=== PATIENT | female | born 1950 | race Caucasian/White ===

== ENCOUNTER 2018-01-13 10:24 | Outpatient (CLI) | payer MEDICARE ==
--- NOTE | 2018-01-13 13:46 | MRI ---
MRI LEFT KNEE WITHOUT CONTRAST: INDICATIONS: History of internal derangement of the left knee for many months. COMPARISON: Prior exam, dated 06/02/2015. FINDINGS: Again seen is a horizontally oriented tear involving the body of the lateral meniscus. There is a gudino spected horizontally oriented oblique tear involving the posterior horn/posterior root of the medial meniscus, with partial medial extrusion. The ACL, PCL, MCL, and LCLC are intact. The extensor mechanism is intact. There are small marginal osteophytes affecting all major compartments of the knee. There is moderate to severe chondrosis involving the medial patellar facet and median patellar ridge, which appears si milar to the comparison study. There is a moderate sized semimembranosus-medial gastrocnemius popliteal cyst. IMPRESSION: 1. Mild osteoarthrosis of the left knee. 2. Stable medial and lateral meniscal tears. POS: [facility]
== END 2018-01-13 10:25 | disposition home or self-care (01) ==
LOC: BICMRI 10:24
PROVIDERS: ATTEND Orthopaedic Surgery
DX: M23.92 Unspecified internal derangement of left knee (principal); S83.242A Other tear of medial meniscus, current injury, left knee, initial encounter; S83.282A Other tear of lateral meniscus, current injury, left knee, initial encounter; M17.12 Unilateral primary osteoarthritis, left knee

== ENCOUNTER 2018-02-04 10:02 | Outpatient (CLI) | payer MEDICARE ==
[2018-02-04 10:56] LABS: #Basophils 0.1 thou/uL (0.0-0.2); #Eosinphils 0.3 thou/uL (0.0-0.7); #Lymphocytes 2.2 thou/uL (1.20-3.40); #Monocytes 0.4 thou/uL (0.11-0.59); #Neutrophils 6.1 thou/uL (1.40-6.50); %Basophils 1.3 % (0.0-1.0); %Eosinophils 3.7 % (0.0-10.0); %Lymphocytes 23.6 % (21.0-51.0); %Monocytes 4.3 % (0.0-10.0); %Neutrophils 67.1 % (42.0-75.0); Hemoglobin 11.6 g/dL (12.0-16.0); Mean Corpuscular HGB CONC 32.6 g/dL (32.0-36.0); Mean Corpuscular Hemoglobin 29.2 pg (27.0-31.0); Mean Corpuscular Volume 89.7 fL (78.0-98.0); Mean Platelet Volume 7.6 fL (7.4-10.4); Platelet Count 382 thou/uL (130-400); RBC Distribution Width 12.4 % (11.5-14.5); Red Blood Cell (RBC) Count 3.97 mill/uL (4.20-5.40); White Blood Cell (WBC) Count 9.1 thou/uL (4.8-10.8)
[2018-02-04 11:16] LABS: Anion Gap 10 mmol/L (10-20); BUN (Urea Nitrogen) 19 mg/dL (9.8-20.1); Calc. Creatinine Clearance 0 mL/min (70-130); Carbon Dioxide 25 mmol/L (23-31); Chloride 106 mmol/L (98-107); Estimated GFR-MDRD 40; Glucose 150 mg/dL (80-115); Sodium 137 mmol/L (136-145)
--- NOTE | 2018-02-05 08:17 | EKG ---
Test Reason : Blood Pressure : / mmHG Vent. Rate : 070 BPM Atrial Rate : 070 BPM P-R Int : 162 ms QRS Dur : 072 ms QT Int : 422 ms P-R-T Axes : 033 -86 033 degrees QTc Int : 455 ms Normal sinus rhythm with sinus arrhythmia Left anterior fascicular block Abnormal ECG When compared with ECG of 08-JUN-2015 10:49, Left anterior fascicular block is now Present Confirmed by DAYANA PERKINS ([id number]) on 02/05/2018 8:16:35 AM Referred By: RSOY Confirmed By:DAYANA PERKINS
== END 2018-02-04 10:03 | disposition home or self-care (01) ==
LOC: LABBT 10:02
PROVIDERS: ATTEND Orthopaedic Surgery
DX: Z01.818 Encounter for other preprocedural examination (principal); S83.207A Unspecified tear of unspecified meniscus, current injury, left knee, initial encounter
CPT/HCPCS: 80048; 85025; 93005; 93010

== ENCOUNTER 2018-02-06 09:18 | Day surgery (SDC) | payer MEDICARE ==
[2018-02-04 10:15] VITALS: BMI 37.0
[2018-02-06] MEDS ORDERED: Bupivacaine HCl 0.5%/Epinephrine 1:200,000/PF 30 ml Vial ONE ×2 (10:14→12:42)
[2018-02-06] MEDS ORDERED: Lidocaine 2% w/Epinephrine 1:200K 20 ML VIAL ONE (10:14)
[2018-02-06] MEDS ORDERED: CEFAZOLIN/Water 2 GM/20 ML SYRINGE ONE (10:29)
[2018-02-06] MEDS ORDERED: PROPOFOL 20 ML ONE (11:01)
[2018-02-06] MEDS ORDERED: Fentanyl 100 MCG/2 ML VIAL ONE ×3 (13:07→14:33)
[2018-02-06] MEDS ORDERED: PROPOFOL 200 MG/20 ML VIAL ONE (14:17)
[2018-02-06] MEDS ORDERED: ePHEDrine/0.9% NaCl/PF SYRINGE 50 mg/10 ml ONE (14:17)
[2018-02-06] MEDS ORDERED: Ondansetron PF 4 MG/2 ML Vial ONE (14:17)
[2018-02-06] MEDS ORDERED: HYDROcodone/Acetaminophen 5/325 mg Tablet ONE (15:56)
--- NOTE | 2018-02-09 11:18 | OP ---
DATE OF PROCEDURE: 02/06/2018 PREOPERATIVE DIAGNOSIS: Left knee medial and lateral meniscus tears. POSTOPERATIVE DIAGNOSES: 1. Left knee medial and lateral meniscus tears. 2. 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 SURGERY PERFORMED: Left knee arthroscopy with partial medial and lateral meniscectomies, as well as debridement of any loose cartilage from the lateral femoral condyle as well as the trochlea and the p atella. SURGEON: Nile Bond M.D. INVASIVE CARDIOLOGIST: None. BLOOD LOSS: Minimal. COMPLICATIONS: None. DISPOSITION: She went to recovery room in stable condition. ANESTHESIA: She did have a general anesthetic as well as a local knee block. INDICATIONS: This 67-year-old active female, comes in complaining of left knee pain. We have failed in our attempt to make it better nonoperatively, and at this time, she is presenting for surgery. TECHNIQUE: After all appropriate consent forms were explained and signed, she was taken back to the operating room, and at this time, was given general anesthetic. Once anesthesia was appropriate, the tourniquet was placed on the left thigh and leg was placed on arthroscopic leg nugent. It was then prepped and draped in standard surgical fashion. Limb was exsanguinated, tourniquet taken to 300 mmH g. An inferolateral portal was then established and the scope was placed into the knee joint. A nee dle localization technique was then used to make a medial working portal. Diagnostic arthroscopy com menced in the notch. ACL and PCL probed and found to be intact. The medial compartment showed a deg enerative tear of the posterior horn of the medial meniscus and a partial meniscectomy was performed using meniscal biter and shaver. There were some small areas of chondral wear and damage, but no sig nificant treatment was necessary. Lateral compartment was entered. Again, there was a tear noted of the lateral meniscus as a flap tear with a horizontal cleavage with a large flap femoral component. This was removed while leaving the top portion of the meniscus intact. There was also some unstable cartilage of the lateral femoral condyle and this was debrided back to a stable base. Gutters were swept through. There were some small osteophytes growing on the femur. There was also a small amoun t of synovitis in the gutters. Patellofemoral joint showed the patient to have a significant amount of crabmeat appearance of the patella. Any loose cartilage was removed gently with the shaver. Saida ining cartilage was left alone. The trochlea also had some grade 2 and 3 chondral changes. At this time, the scope was removed. The fluid was drained from the knee and each portal site was closed wit h a simple nylon stitch. Bulky sterile dressing was applied and the tourniquet was let down. Toes p inked up nicely. The patient was awakened and taken to the recovery room in stable condition. All c ounts were correct at the end of the case. She received preoperative IV antibiotics.
--- NOTE | 2018-02-09 12:40 | HP ---
This is for a case that was performed on 02/06/2018. HISTORY OF PRESENT ILLNESS: This is an H&P update for patient who has had long-term left knee proble ms. The patient decided to have a knee arthroscopy and at this time is presenting for said procedure . REVIEW OF SYSTEMS: Negative for any recent fevers, chills, shortness of breath or chest pain. Her past medical, surgical, family and social history is unchanged from her previous H&P. Medication s were also changed. ALLERGIES: She is allergic to MORPHINE, but it is not really an allergy, it is intolerance. PHYSICAL EXAMINATION: GENERAL: This is a well-developed female in no acute distress, alert and cooperative. EXTREMITIES: Exam in left knee shows the skin intact. No redness, no warmth. There is a small effu shae. She has good alignment. She has both medial and lateral joint line pain. She has some crepit ance with range of motion. She has no pain or problems with rotation of her left hip joint. She has normal ligamentous stability. She has range of motion from 0-30. Her calf is soft and nontender. She is neurovascularly intact and has a good straight leg raise. ASSESSMENT: A 67-year-old female with degenerative meniscal tears. PLAN: At this time, recommendation is for Klaudia to undergo left knee partial meniscectomy and other indicated treatments. I have explained all surgical risks and benefits including but not limited to by anesthesia, neurovascular damage, infection, blood clot formation, chronic pain, stiffness, weakness, limp, unpleasant cosmetic deformity, and possible need for surgery in the future. She fletcher s understand these risks and benefits and willing to proceed.
== END 2018-02-06 16:20 | disposition home or self-care (01) ==
LOC: SDC 09:18
PROVIDERS: ATTEND Orthopaedic Surgery
PROC: 0SBD4ZZ Excision of Left Knee Joint, Percutaneous Endoscopic Approach (ICD-10-PCS; principal; 2018-02-06)
PROC: 0SBD4ZZ Excision of Left Knee Joint, Percutaneous Endoscopic Approach (ICD-10-PCS; 2018-02-06)
DX: S83.242A Other tear of medial meniscus, current injury, left knee, initial encounter (principal); S83.282A Other tear of lateral meniscus, current injury, left knee, initial encounter; M22.42 Chondromalacia patellae, left knee; M25.762 Osteophyte, left knee; M65.88 Other synovitis and tenosynovitis, other site; J45.909 Unspecified asthma, uncomplicated; E78.00 Pure hypercholesterolemia, unspecified; E11.9 Type 2 diabetes mellitus without complications; E07.9 Disorder of thyroid, unspecified; Z79.82 Long term (current) use of aspirin; Z79.84 Long term (current) use of oral hypoglycemic drugs; Z79.899 Other long term (current) drug therapy; Z88.5 Allergy status to narcotic agent; Z91.048 Other nonmedicinal substance allergy status
CPT/HCPCS: 29880; 96374; 97139; G8978; G8979; G8980; J0670; J2405; J2704; J3010

== ENCOUNTER 2019-02-05 22:10 | Emergency (ER) | payer MEDICARE | END 2019-02-06 00:20 | disposition left against medical advice (07) | LOC: ERS 22:10 | DX: Z53.21 Procedure and treatment not carried out due to patient leaving prior to being seen by health care provider (principal) | CPT/HCPCS: 93005 ==

== ENCOUNTER 2020-07-07 08:53 | Observation (INO) | payer MEDICARE ==
[2020-07-07] MEDS ORDERED: Aspirin Chewable 81 MG TAB ONE (09:28)
[2020-07-07] MEDS ORDERED: Nitroglycerin 0.4 MG TAB 1 EACH ONE (09:28)
[2020-07-07 09:36] LABS: #Basophils 0.1 thou/uL (0.0-0.2); #Eosinphils 0.2 thou/uL (0.0-0.7); #Lymphocytes 2.2 thou/uL (1.20-3.40); #Monocytes 0.4 thou/uL (0.11-0.59); #Neutrophils 6.1 thou/uL (1.40-6.50); %Basophils 1.4 % (0.0-1.0); %Lymphocytes 24.2 % (21.0-51.0); %Monocytes 4.8 % (0.0-10.0); %Neutrophils 67.6 % (42.0-75.0); Hemoglobin 13.5 g/dL (12.0-16.0); Mean Corpuscular HGB CONC 32.6 g/dL (32.0-36.0); Mean Corpuscular Hemoglobin 29.6 pg (27.0-31.0); Mean Corpuscular Volume 90.8 fL (78.0-98.0); Mean Platelet Volume 7.8 fL (7.4-10.4); Platelet Count 313 thou/uL (130-400); RBC Distribution Width 12.4 % (11.5-14.5); Red Blood Cell (RBC) Count 4.54 mill/uL (4.20-5.40)
[2020-07-07 11:01] LABS: ALT (SGPT) 8 U/L (8-55); AST (SGOT) 18 U/L (5-34); Albumin 4.6 g/dL (3.4-4.8); Alkaline Phosphatase 72 U/L (40-110); Anion Gap 19 mmol/L (10-20); BUN (Urea Nitrogen) 19 mg/dL (9.8-20.1); Bilirubin, Total 0.6 mg/dL (0.2-1.2); Calc. Creatinine Clearance 0 mL/min (70-130); Calcium 9.6 mg/dL (7.8-10.44); Carbon Dioxide 19 mmol/L (23-31); Chloride 106 mmol/L (98-107); Glucose 113 mg/dL (80-115); Potassium 4.9 mmol/L (3.5-5.1); Protein, Total 7.6 g/dL (5.8-8.1); Sodium 139 mmol/L (136-145)
[2020-07-07] MEDS ORDERED: Ondansetron PF 4 MG/2 ML Vial ONE (12:04)
[2020-07-07] MEDS ORDERED: Acetaminophen 325 MG TAB ONE (12:04)
[2020-07-07 12:30] LABS: Troponin I 0.011 ng/mL (< 0.028)
[2020-07-07] MEDS ORDERED: Dextrose 5% in Water 1,000 ML IV PRN (12:55)
[2020-07-07] MEDS ORDERED: Dextrose 50% Abboject 50 ML SYRINGE SLOW IVP PRN (12:55)
[2020-07-07] MEDS ORDERED: Ondansetron PF 4 MG/2 ML Vial IVP PRN (13:02)
[2020-07-07] MEDS ORDERED: HumaLOG 300 UNITS/3 ML VIAL SC PRN ×2 (13:02)
[2020-07-07] MEDS ORDERED: Docusate 100 MG CAP PO PRN (13:09)
[2020-07-07] MEDS ORDERED: hydrALAZINE 20 MG/ML VIAL SLOW IVP PRN (13:09)
[2020-07-07 17:12] VITALS: BMI 35.2
[2020-07-07] MEDS: Acetaminophen 325 MG TAB PO PRN (21:53)
[2020-07-08 04:51] LABS: SARS-CoV-2 PCR by NAA Not Detected (NotDetected)
[2020-07-08 05:20] LABS: #Basophils 0.1 thou/uL (0.0-0.2); #Eosinphils 0.3 thou/uL (0.0-0.7); #Lymphocytes 2.5 thou/uL (1.20-3.40); #Monocytes 0.5 thou/uL (0.11-0.59); #Neutrophils 4.1 thou/uL (1.40-6.50); %Basophils 1.2 % (0.0-1.0); %Eosinophils 3.9 % (0.0-10.0); %Lymphocytes 34.1 % (21.0-51.0); %Monocytes 6.1 % (0.0-10.0); %Neutrophils 54.7 % (42.0-75.0); Hemoglobin 10.9 g/dL (12.0-16.0); Mean Corpuscular HGB CONC 32.3 g/dL (32.0-36.0); Mean Corpuscular Hemoglobin 29.4 pg (27.0-31.0); Platelet Count 279 thou/uL (130-400); RBC Distribution Width 12.4 % (11.5-14.5); Red Blood Cell (RBC) Count 3.71 mill/uL (4.20-5.40); White Blood Cell (WBC) Count 7.4 thou/uL (4.8-10.8)
[2020-07-08 05:43] LABS: Anion Gap 14 mmol/L (10-20); BUN (Urea Nitrogen) 16 mg/dL (9.8-20.1); Calc. Creatinine Clearance 45 mL/min (70-130); Calcium 8.7 mg/dL (7.8-10.44); Carbon Dioxide 22 mmol/L (23-31); Chloride 106 mmol/L (98-107); Glucose 104 mg/dL (80-115); Potassium 4.8 mmol/L (3.5-5.1); Sodium 137 mmol/L (136-145)
[2020-07-08] MEDS ORDERED: Aspirin Chewable 81 MG TAB PO SCH (09:00)
[2020-07-08] MEDS ORDERED: ADENOSINE 60 MG/20 ML VIAL ONE (12:52)
[2020-07-08] MEDS: Acetaminophen 325 MG TAB PO PRN (12:54)
[2020-07-08 13:04] VITALS: BP 134/61; TEMP 98.1
== END 2020-07-08 15:52 | disposition home or self-care (01) ==
LOC: ERS 08:53 → ERHOLD 11:27 → 2SW 15:06
PROVIDERS: ADMIT Internal Medicine; ATTEND Internal Medicine
DX: R07.89 Other chest pain (principal); I12.9 Hypertensive chronic kidney disease with stage 1 through stage 4 chronic kidney disease, or unspecified chronic kidney disease; E11.22 Type 2 diabetes mellitus with diabetic chronic kidney disease; N18.30 Chronic kidney disease, stage 3 unspecified; I25.10 Atherosclerotic heart disease of native coronary artery without angina pectoris; E78.5 Hyperlipidemia, unspecified; Z79.82 Long term (current) use of aspirin; Z79.84 Long term (current) use of oral hypoglycemic drugs; Z79.899 Other long term (current) drug therapy; Z88.5 Allergy status to narcotic agent; Z91.040 Latex allergy status; Z91.048 Other nonmedicinal substance allergy status; Z20.822 Contact with and (suspected) exposure to COVID-19
CPT/HCPCS: 71045; 78452; 80048; 80053; 82962 ×2; 84484 ×2; 85025 ×2; 85379; 93005; 93017; 94760 ×2; 96374; 96376; 99285; A9500; G0378 ×3; U0003; U0005; 36416; 87635; J0153; J2405

== ENCOUNTER 2020-12-01 09:40 | Outpatient (CLI) | payer MEDICARE | END 2020-12-01 09:41 | disposition home or self-care (01) | LOC: BICRAD 09:40 | PROVIDERS: ATTEND Physician Assistant Medical | DX: K59.00 Constipation, unspecified (principal) | CPT/HCPCS: 74018 ==

== ENCOUNTER 2020-12-05 09:02 | Outpatient (CLI) | payer MEDICARE | END 2020-12-05 09:03 | disposition home or self-care (01) | LOC: BICRAD 09:02 | PROVIDERS: ATTEND Physician Assistant Medical | DX: K59.00 Constipation, unspecified (principal) | CPT/HCPCS: 74018 ==

== ENCOUNTER 2021-01-09 13:48 | Inpatient (IN) | payer MEDICARE ==
[~2021-01-09 13:48] MED LIST: Iopamidol 370 76% 50 ML VIAL FS ONE
[2021-01-09 14:54] LABS: #Basophils 0.1 thou/uL (0.0-0.2); #Lymphocytes 1.4 thou/uL (1.20-3.40); #Monocytes 0.7 thou/uL (0.11-0.59); #Neutrophils 10.7 thou/uL (1.40-6.50); %Basophils 0.8 % (0.0-1.0); %Eosinophils 0.1 % (0.0-10.0); %Lymphocytes 10.7 % (21.0-51.0); %Monocytes 5.7 % (0.0-10.0); %Neutrophils 82.7 % (42.0-75.0); Hemoglobin 13.6 g/dL (12.0-16.0); Mean Corpuscular HGB CONC 33.1 g/dL (32.0-36.0); Mean Corpuscular Hemoglobin 29.1 pg (27.0-31.0); Mean Corpuscular Volume 87.9 fL (78.0-98.0); Mean Platelet Volume 7.3 fL (7.4-10.4); Platelet Count 392 thou/uL (130-400); RBC Distribution Width 13.6 % (11.5-14.5); Red Blood Cell (RBC) Count 4.67 mill/uL (4.20-5.40); White Blood Cell (WBC) Count 12.9 thou/uL (4.8-10.8)
[2021-01-09 15:27] LABS: ALT (SGPT) 26 U/L (8-55); AST (SGOT) 23 U/L (5-34); Albumin 4.5 g/dL (3.4-4.8); Alkaline Phosphatase 97 U/L (40-110); Anion Gap 18 mmol/L (10-20); BUN (Urea Nitrogen) 61 mg/dL (9.8-20.1); Bilirubin, Total 0.4 mg/dL (0.2-1.2); Calc. Creatinine Clearance 0 mL/min (70-130); Calcium 9.3 mg/dL (7.8-10.44); Carbon Dioxide 11 mmol/L (23-31); Chloride 111 mmol/L (98-107); Globulin 3.2 g/dL (2.4-3.5); Glucose 179 mg/dL (80-115); Potassium 5.6 mmol/L (3.5-5.1); Protein, Total 7.7 g/dL (5.8-8.1); Sodium 134 mmol/L (136-145)
[2021-01-09] MEDS ORDERED: Fentanyl 100 MCG/2 ML VIAL ONE (18:42)
[2021-01-09] MEDS ORDERED: Ondansetron PF 4 MG/2 ML Vial ONE (18:56)
[2021-01-09 19:37] LABS: Analyzer IN Cardio ER; Base Excess -13.4 mEq/L (-2.0 to +3.0); Calcium, Ionized (venous) 1.15 mmol/L (1.16-1.32); Chloride (VBG) 111 mmol/L (98-106); Hemoglobin (Hb) 13.3 g/dL (11.7-16.1); Potassium (VBG) 5.29 mmol/L (3.70-5.30); Sodium 134.6 mmol/L (133-146)
[2021-01-09 19:39] LABS: Actual Bicarbonate (HCO3v) 13 mEq/L (22-28); pH (venous) 7.21 (7.32-7.43)
[2021-01-09] MEDS ORDERED: Sodium Bicarb 50 MEQ/50 ML Abboject 8.4% SYRINGE ONE (19:41)
[2021-01-09] MEDS ORDERED: Calcium Chloride 1 GM/10 ML Abboject SYRINGE ONE (19:41)
[2021-01-09] MEDS ORDERED: Sodium Bicarbonate 150 MEQ in Dextrose 5% in Water 1,000 ML IV SCH (20:00)
[2021-01-09] MEDS ORDERED: HYDROcodone/Acetaminophen 5/325 mg Tablet PO PRN (23:27)
[2021-01-09] MEDS ORDERED: Promethazine HCl 12.5 MG in Sodium Chloride 0.9% 50 ML IVPB SCH (23:30)
[2021-01-10] MEDS ORDERED: Promethazine HCl 25 MG/ML VIAL ONE (00:55)
[2021-01-10] MEDS ORDERED: HYDROcodone/Acetaminophen 5/325 mg Tablet ONE (01:04)
[2021-01-10 01:17] LABS: #Basophils 0.1 thou/uL (0.0-0.2); #Lymphocytes 2.3 thou/uL (1.20-3.40); #Monocytes 0.7 thou/uL (0.11-0.59); %Basophils 0.6 % (0.0-1.0); %Eosinophils 0.2 % (0.0-10.0); %Lymphocytes 17.2 % (21.0-51.0); %Monocytes 5.2 % (0.0-10.0); %Neutrophils 76.8 % (42.0-75.0); Hemoglobin 12.2 g/dL (12.0-16.0); Mean Corpuscular HGB CONC 32.3 g/dL (32.0-36.0); Mean Corpuscular Hemoglobin 28.7 pg (27.0-31.0); Mean Corpuscular Volume 88.8 fL (78.0-98.0); Mean Platelet Volume 7.4 fL (7.4-10.4); Platelet Count 344 thou/uL (130-400); RBC Distribution Width 13.5 % (11.5-14.5); Red Blood Cell (RBC) Count 4.27 mill/uL (4.20-5.40); White Blood Cell (WBC) Count 13.1 thou/uL (4.8-10.8)
[2021-01-10] MEDS ORDERED: Fentanyl 100 MCG/2 ML VIAL SLOW IVP PRN (01:17)
[2021-01-10] MEDS ORDERED: hydrALAZINE 20 MG/ML VIAL SLOW IVP PRN (01:17)
[2021-01-10] MEDS ORDERED: HumaLOG 300 UNITS/3 ML VIAL SC PRN (01:24)
[2021-01-10] MEDS ORDERED: Dextrose 5% in Water 1,000 ML IV PRN (01:24)
[2021-01-10] MEDS ORDERED: Dextrose 50% Abboject 50 ML SYRINGE SLOW IVP PRN (01:24)
[2021-01-10] MEDS ORDERED: Sodium Bicarbonate 150 MEQ in Dextrose 5% in Water 1,000 ML IV SCH (01:30)
[2021-01-10 02:16] LABS: Chloride 112 mmol/L (98-107); Potassium 5.8 mmol/L (3.5-5.1); Sodium 135 mmol/L (136-145)
[2021-01-10 02:17] LABS: Calcium 9.6 mg/dL (7.8-10.44)
[2021-01-10 02:19] LABS: Anion Gap 18 mmol/L (10-20); Carbon Dioxide 11 mmol/L (23-31)
[2021-01-10 02:21] LABS: Calc. Creatinine Clearance 0 mL/min (70-130)
[2021-01-10 02:22] LABS: BUN (Urea Nitrogen) 59 mg/dL (9.8-20.1)
[2021-01-10 02:25] LABS: Glucose 167 mg/dL (80-115)
[2021-01-10] MEDS ORDERED: Fentanyl 100 MCG/2 ML VIAL SLOW IVP SCH (03:00)
[2021-01-10] MEDS ORDERED: Fentanyl 100 MCG/2 ML VIAL ONE ×2 (03:14→11:36)
[2021-01-10 05:36] LABS: SARS-CoV-2 NAA Rapid Test Not Detected (NotDetected)
[2021-01-10 08:05] LABS: #Eosinphils 0.1 thou/uL (0.0-0.7); #Lymphocytes 2.9 thou/uL (1.20-3.40); #Monocytes 0.8 thou/uL (0.11-0.59); #Neutrophils 7.8 thou/uL (1.40-6.50); %Basophils 0.3 % (0.0-1.0); %Eosinophils 0.6 % (0.0-10.0); %Lymphocytes 25.2 % (21.0-51.0); %Monocytes 6.7 % (0.0-10.0); %Neutrophils 67.1 % (42.0-75.0); Hemoglobin 11.6 g/dL (12.0-16.0); Mean Corpuscular HGB CONC 32.2 g/dL (32.0-36.0); Mean Corpuscular Hemoglobin 28.5 pg (27.0-31.0); Mean Corpuscular Volume 88.6 fL (78.0-98.0); Mean Platelet Volume 7.5 fL (7.4-10.4); Platelet Count 309 thou/uL (130-400); RBC Distribution Width 13.5 % (11.5-14.5); Red Blood Cell (RBC) Count 4.05 mill/uL (4.20-5.40); White Blood Cell (WBC) Count 11.5 thou/uL (4.8-10.8)
[2021-01-10 08:24] LABS: ALT (SGPT) 24 U/L (8-55); AST (SGOT) 23 U/L (5-34); Albumin 3.5 g/dL (3.4-4.8); Alkaline Phosphatase 75 U/L (40-110); Anion Gap 13 mmol/L (10-20); BUN (Urea Nitrogen) 51 mg/dL (9.8-20.1); Bilirubin, Total 0.5 mg/dL (0.2-1.2); Calc. Creatinine Clearance 0 mL/min (70-130); Calcium 8.9 mg/dL (7.8-10.44); Carbon Dioxide 21 mmol/L (23-31); Chloride 109 mmol/L (98-107); Globulin 2.4 g/dL (2.4-3.5); Glucose 123 mg/dL (80-115); Potassium 5.3 mmol/L (3.5-5.1); Protein, Total 5.9 g/dL (5.8-8.1); Sodium 138 mmol/L (136-145)
[2021-01-10] MEDS ORDERED: Famotidine/PF 20 mg/2ml Vial SLOW IVP SCH (09:00)
[2021-01-10] MEDS ORDERED: Famotidine/PF 20 mg/2ml Vial ONE (09:29)
[2021-01-10] MEDS ORDERED: Ondansetron PF 4 MG/2 ML Vial ONE (09:40)
[2021-01-10] MEDS: Ondansetron PF 4 MG/2 ML Vial IVP PRN (09:40)
[2021-01-10 16:10] VITALS: BMI 36.0
[2021-01-10] MEDS ORDERED: Aggrastat 12.5 MG/250 ML 0 ML ONE (16:24)
[2021-01-10] MEDS ORDERED: Bivalirudin 250 MG VIAL ONE (16:25)
[2021-01-10] MEDS: Hyoscyamine Sulfate SL 0.125 mg Tablet SL PRN (17:28)
[2021-01-10] MEDS ORDERED: Non-Formulary Item 1 EACH (Budesonide-Formoterol [Symbicort 160-4.5] 160 MG/4.5 MG Aer) INH PRN (18:03)
[2021-01-10 18:10] LABS: Anion Gap 13 mmol/L (10-20); BUN (Urea Nitrogen) 46 mg/dL (9.8-20.1); Calc. Creatinine Clearance 45 mL/min (70-130); Calcium 8.9 mg/dL (7.8-10.44); Carbon Dioxide 22 mmol/L (23-31); Chloride 110 mmol/L (98-107); Glucose 84 mg/dL (80-115); Potassium 5.2 mmol/L (3.5-5.1); Sodium 140 mmol/L (136-145)
[2021-01-10] MEDS: Ezetimibe 10 MG TAB PO SCH (20:44)
[2021-01-10] MEDS: Rosuvastatin 10 MG TAB PO SCH (20:44)
[2021-01-10] MEDS: rOPINIRole HCl 1 MG TAB PO SCH (20:44)
[2021-01-10] MEDS: Dicyclomine 20 MG TAB PO PRN (20:44)
[2021-01-11] MEDS: Levothyroxine Sodium 50 MCG TAB PO SCH (05:10)
[2021-01-11] MEDS: Hyoscyamine Sulfate SL 0.125 mg Tablet SL PRN ×3 (09:27→22:27)
[2021-01-11] MEDS: Aspirin 81 mg Enteric Coated Tablet PO SCH (09:27)
[2021-01-11] MEDS: Dextrose 5 %-0.45 % NaCl 1,000 ML IV SCH ×2 (09:29→17:51)
[2021-01-11] MEDS: Ondansetron PF 4 MG/2 ML Vial IVP PRN ×2 (09:44→17:42)
[2021-01-11 13:15] LABS: Anion Gap 10 mmol/L (10-20); BUN (Urea Nitrogen) 38 mg/dL (9.8-20.1); Calc. Creatinine Clearance 43 mL/min (70-130); Calcium 8.8 mg/dL (7.8-10.44); Carbon Dioxide 27 mmol/L (23-31); Chloride 107 mmol/L (98-107); Glucose 117 mg/dL (80-115); Sodium 139 mmol/L (136-145)
[2021-01-11] MEDS: Dicyclomine 20 MG TAB PO PRN (14:46)
[2021-01-11] MEDS: HumaLOG 300 UNITS/3 ML VIAL SC PRN (17:42)
[2021-01-11] MEDS: Ezetimibe 10 MG TAB PO SCH (22:23)
[2021-01-11] MEDS: Rosuvastatin 10 MG TAB PO SCH (22:23)
[2021-01-11] MEDS: rOPINIRole HCl 1 MG TAB PO SCH (22:24)
[2021-01-12] MEDS: Dicyclomine 20 MG TAB PO PRN ×2 (03:54→12:30)
[2021-01-12] MEDS: Levothyroxine Sodium 50 MCG TAB PO SCH (06:33)
[2021-01-12] MEDS: HumaLOG 300 UNITS/3 ML VIAL SC PRN (06:33)
[2021-01-12 06:58] LABS: Anion Gap 13 mmol/L (10-20); BUN (Urea Nitrogen) 28 mg/dL (9.8-20.1); Calc. Creatinine Clearance 43 mL/min (70-130); Calcium 8.5 mg/dL (7.8-10.44); Carbon Dioxide 23 mmol/L (23-31); Chloride 108 mmol/L (98-107); Glucose 130 mg/dL (80-115); Potassium 4.7 mmol/L (3.5-5.1); Sodium 139 mmol/L (136-145)
[2021-01-12 08:11] VITALS: TEMP 98
[2021-01-12] MEDS: Aspirin 81 mg Enteric Coated Tablet PO SCH (09:25)
[2021-01-12 12:02] VITALS: BP 120/58
== END 2021-01-12 13:54 | disposition home or self-care (01) | DRG 683 ==
LOC: ERS 13:48 → ERHOLD 22:29 → 2NO 01-10 15:33
PROVIDERS: ADMIT Internal Medicine; ATTEND Internal Medicine
DX: N17.9 Acute kidney failure, unspecified (principal); E87.2 Acidosis; K58.2 Mixed irritable bowel syndrome; E87.5 Hyperkalemia; E86.0 Dehydration; E78.5 Hyperlipidemia, unspecified; E11.22 Type 2 diabetes mellitus with diabetic chronic kidney disease; I12.9 Hypertensive chronic kidney disease with stage 1 through stage 4 chronic kidney disease, or unspecified chronic kidney disease; E66.9 Obesity, unspecified; E11.65 Type 2 diabetes mellitus with hyperglycemia; D64.9 Anemia, unspecified; K21.9 Gastro-esophageal reflux disease without esophagitis; J45.909 Unspecified asthma, uncomplicated; E03.9 Hypothyroidism, unspecified; N18.30 Chronic kidney disease, stage 3 unspecified; Z20.822 Contact with and (suspected) exposure to COVID-19; I25.10 Atherosclerotic heart disease of native coronary artery without angina pectoris; K27.9 Peptic ulcer, site unspecified, unspecified as acute or chronic, without hemorrhage or perforation; Z90.49 Acquired absence of other specified parts of digestive tract; Z98.890 Other specified postprocedural states; Z79.4 Long term (current) use of insulin; Z98.2 Presence of cerebrospinal fluid drainage device; Z90.710 Acquired absence of both cervix and uterus; Z68.33 Body mass index [BMI] 33.0-33.9, adult; Z88.5 Allergy status to narcotic agent; Z88.8 Allergy status to other drugs, medicaments and biological substances; Z91.040 Latex allergy status
CPT/HCPCS: 36415; 36416; 74176; 80048; 80053; 82805; 83605; 83690; 84443; 85025; 87045; 87046; 87324; 87427; 87449; 93005; J0583; J1815; J2405; J2550; J3010; J3246; J7042; J7070; Q9967; S0028; U0002

== ENCOUNTER 2023-05-07 14:48 | Outpatient (CLI) | payer MEDICARE | END 2023-05-07 14:49 | disposition home or self-care (01) | LOC: ULT 14:48 | PROVIDERS: ATTEND Internal Medicine Nephrology | DX: N18.30 Chronic kidney disease, stage 3 unspecified (principal) | CPT/HCPCS: 36415; 76770; 80048; 81003; 82570; 83540; 83550; 84100; 84156; 85014; 85018 ==

== ENCOUNTER 2024-02-19 09:45 | Outpatient (CLI) | payer MEDICARE ==
[2024-02-19 12:12] LABS: #Basophils Less than 0.03 10x3/uL (0.0-0.2); #Eosinophils Less than 0.03 10x3/uL (0.0-0.7); %Basophils 0.1 % (0.0-1.0); %Eosinophils 0.2 % (0.0-10.0); %Lymphocytes 8.7 % (21.0-51.0); %Monocytes 3.3 % (0.0-10.0); %Neutrophils 86.3 % (42.0-75.0); Hematocrit 33.9 % (36.0-47.0); Hemoglobin 10.8 g/dL (12.0-16.0); Mean Corpuscular HGB CONC 31.9 g/dL (32.0-36.0); Mean Corpuscular Hemoglobin 28.6 pg (27.0-31.0); Mean Corpuscular Volume 89.7 fL (78.0-98.0); Mean Platelet Volume 10.1 fL (7.4-10.4); Platelet Count 354 10x3/uL (130-400); RBC Distribution Width 15.6 % (11.5-14.5); Red Blood Cell (RBC) Count 3.78 mill/uL (4.20-5.40)
[2024-02-19 12:21] LABS: Bilirubin Negative (Negative); Blood, Urine Negative (Negative); Clarity Clear (Clear); Glucose, Urine (Dipstick) Greater than 1000 mg/dL (Negative); Ketone, Urine Negative (Negative); Leukocyte Negative Leu/uL (Negative); Nitrite Negative (Negative); Protein, Urine (Dipstick) Negative (Neg-Trace); Urobilinogen Normal mg/dL (Less than 2)
[2024-02-19 12:26] LABS: INR-International Normal Ratio 1.1; Prothrombin Time 14.5 sec (12.0-14.7)
[2024-02-19 12:28] LABS: Anion Gap 16 mmol/L (10-20); BUN (Urea Nitrogen) 11 mg/dL (9.8-20.1); Calc. Creatinine Clearance 0 mL/min (70-130); Calcium 8.6 mg/dL (7.8-10.44); Carbon Dioxide 28 mmol/L (23-31); Chloride 101 mmol/L (98-107); Estimated GFR 60; Glucose 172 mg/dL (83-110); Potassium 3.4 mmol/L (3.5-5.1); Sodium 142 mmol/L (136-145)
== END 2024-02-19 09:46 | disposition home or self-care (01) ==
LOC: LABBT 09:45
PROVIDERS: ATTEND Orthopaedic Surgery
DX: Z01.818 Encounter for other preprocedural examination (principal); M17.12 Unilateral primary osteoarthritis, left knee; I51.7 Cardiomegaly
CPT/HCPCS: 71046; 80048; 81003; 85025; 85610; 87081; 93005; 93010

== ENCOUNTER 2024-02-23 08:09 | Inpatient (IN) | payer MEDICARE ==
[2024-02-23] MEDS ORDERED: Bupivacaine PF 0.5% 30 ML VIAL ONE ×2 (09:37→10:04)
[2024-02-23] MEDS ORDERED: Tranexamic Acid 1,000 MG/10 ML VIAL ONE ×2 (09:48→12:53)
[2024-02-23] MEDS ORDERED: Ondansetron PF 4 MG/2 ML Vial ONE (09:49)
[2024-02-23] MEDS ORDERED: Lidocaine 1% PF 5 ML VIAL ONE (09:49)
[2024-02-23] MEDS ORDERED: PROPOFOL 20 ML ONE (09:49)
[2024-02-23] MEDS ORDERED: Vancomycin 1 GM/200 ML (FROZEN) BAG ONE (09:49)
[2024-02-23] MEDS ORDERED: Dexamethasone 20 MG/5 ML VIAL ONE (09:49)
[2024-02-23] MEDS ORDERED: Famotidine/PF 20 mg/2ml Vial ONE (09:49)
[2024-02-23] MEDS ORDERED: Acetaminophen 500 MG TAB ONE (09:49)
[2024-02-23] MEDS ORDERED: fentaNYL 50 mcg/mL 1 mL Vial ONE ×6 (09:50→14:41)
[2024-02-23] MEDS ORDERED: Midazolam HCl 2 mg/2 ml Vial ONE (10:04)
[2024-02-23] MEDS ORDERED: Sodium Chloride 0.9% 100 ML ONE (10:06)
[2024-02-23] MEDS ORDERED: CEFAZOLIN 2 GM VIAL ONE (10:13)
[2024-02-23] MEDS ORDERED: Bupivacaine HCl 0.5%/Epinephrine 1:200,000/PF 30 ml Vial ONE (10:22)
[2024-02-23] MEDS ORDERED: fentaNYL 50 mcg/mL 1 mL Vial SLOW IVP PRN (10:45)
[2024-02-23] MEDS ORDERED: Zolpidem Tartrate 5 MG TAB PO PRN (10:45)
[2024-02-23] MEDS ORDERED: Promethazine HCl 25 MG/ML VIAL IM PRN ×2 (10:45→12:37)
[2024-02-23] MEDS ORDERED: Ropivacaine 0.2% 550 ML 550 ML NERVE BLCK SCH (10:45)
[2024-02-23] MEDS ORDERED: traMADol HCl 50 MG TAB PO PRN ×2 (10:45)
[2024-02-23] MEDS ORDERED: Glycopyrrolate 0.2 MG/ML 5 ML SYRINGE ONE (11:31)
[2024-02-23] MEDS ORDERED: diphenhydrAMINE 25 MG CAP PO PRN (12:08)
[2024-02-23] MEDS ORDERED: Dicyclomine 20 MG TAB PO PRN (12:09)
[2024-02-23] MEDS ORDERED: Ondansetron HCl/PF 4 MG/2 ML Vial IVP PRN (12:37)
[2024-02-23] MEDS ORDERED: HYDROmorphone 0.5 MG/0.5 ML SYRINGE ONE ×3 (12:43→14:19)
[2024-02-23] MEDS: Ketorolac Tromethamine 30 MG (1 mL) VIAL IVP SCH (15:55)
[2024-02-23] MEDS: Tranexamic Acid 1,000 MG in Sodium Chloride 0.9% 100 ML IVPB SCH (15:56)
[2024-02-23 16:28] VITALS: BMI 32.4
[2024-02-23] MEDS: CEFAZOLIN 2 GM in Sodium Chloride 0.9% 100 ML IVPB SCH (17:10)
[2024-02-23] MEDS: Sodium Chloride 0.9% 1,000 ML IV SCH (17:10)
[2024-02-23] MEDS: Ranolazine ER 500 MG TAB PO SCH (19:59)
[2024-02-23] MEDS: Pantoprazole DR 40 MG TAB PO SCH (19:59)
[2024-02-23] MEDS: rOPINIRole HCl 1 MG TAB PO SCH (19:59)
[2024-02-23] MEDS: Ezetimibe 10 MG TAB PO SCH (20:00)
[2024-02-23] MEDS: Aspirin 81 mg Enteric Coated Tablet PO SCH (20:00)
[2024-02-23] MEDS: HYDROcodone/Acetaminophen 10/325 mg Tablet PO PRN (20:00)
[2024-02-23] MEDS: Rosuvastatin 10 MG TAB PO SCH (20:00)
[2024-02-23] MEDS: Ondansetron PF 4 MG/2 ML Vial IVP PRN ×2 (22:04→23:15)
[2024-02-23] MEDS: Vancomycin (BATCH) 1.5 GM in Premix 1 BAG IVPB SCH (22:34)
[2024-02-24] MEDS: Promethazine HCl 25 MG/ML VIAL IM PRN (02:47)
[2024-02-24 05:44] LABS: Hematocrit 29.3 % (36.0-47.0); Hemoglobin 9.4 g/dL (12.0-16.0); Mean Corpuscular HGB CONC 32.1 g/dL (32.0-36.0); Mean Corpuscular Volume 90.4 fL (78.0-98.0); Mean Platelet Volume 11.3 fL (7.4-10.4); Platelet Count 244 10x3/uL (130-400); RBC Distribution Width 16.8 % (11.5-14.5); Red Blood Cell (RBC) Count 3.24 mill/uL (4.20-5.40)
[2024-02-24] MEDS: Levothyroxine Sodium 50 MCG TAB PO SCH (06:20)
[2024-02-24] MEDS: Levothyroxine Sodium 75 MCG TAB PO SCH (06:39)
[2024-02-24] MEDS ORDERED: Aspirin 81 mg Enteric Coated Tablet PO SCH (09:00)
[2024-02-24] MEDS: Senokot S 8.6-50 MG TAB PO SCH (09:18)
[2024-02-24] MEDS: Multivitamin W/ Minerals 1 TAB PO SCH (09:18)
[2024-02-24] MEDS: Ferrous Gluconate 324 MG TAB PO SCH (09:19)
[2024-02-24] MEDS: Losartan 25 MG TAB PO SCH (09:19)
[2024-02-24] MEDS: Amlodipine 5 MG TAB PO SCH (09:20)
[2024-02-24] MEDS: Acetaminophen 325 MG TAB PO PRN (09:49)
[2024-02-24] MEDS: Acetaminophen/Codeine 30-300mg Tablet PO PRN (09:49)
[2024-02-24] MEDS ORDERED: Iopamidol-370 76% 500 ML MDV (1 ML CHARGE) ONE (10:04)
[2024-02-24] MEDS ORDERED: Dextrose 5% in Water 1,000 ML IV PRN (10:43)
[2024-02-24] MEDS ORDERED: Insulin Lispro 100 UNIT/ML 10 ML VIAL SC PRN ×2 (10:43)
[2024-02-24] MEDS ORDERED: Dextrose 50% Abboject 50 ML SYRINGE SLOW IVP PRN (10:43)
[2024-02-24] MEDS ORDERED: Glucagon 1 MG/ML KIT IM PRN (10:43)
[2024-02-24] MEDS ORDERED: Albuterol 2.5 MG (3 mL) NEB NEB PRN (10:48)
[2024-02-24] MEDS: Doxycycline 100 MG CAP PO SCH ×2 (11:43→20:03)
[2024-02-24] MEDS: cefTRIAXone\\ROCEPHIN 1 GM in Sodium Chloride 0.9% 100 ML IVPB SCH (11:43)
[2024-02-24] MEDS: Ipratropium/Albuterol 3 ML NEB NEB SCH (16:54)
[2024-02-24] MEDS: Zolpidem Tartrate 5 MG TAB PO PRN (21:24)
[2024-02-25] MEDS: Levothyroxine Sodium 50 MCG TAB PO SCH (05:01)
[2024-02-25 05:28] LABS: Hematocrit 32.7 % (36.0-47.0); Hemoglobin 10.4 g/dL (12.0-16.0); Mean Corpuscular HGB CONC 31.8 g/dL (32.0-36.0); Mean Corpuscular Hemoglobin 28.4 pg (27.0-31.0); Mean Corpuscular Volume 89.3 fL (78.0-98.0); Mean Platelet Volume 10.8 fL (7.4-10.4); Platelet Count 258 10x3/uL (130-400); RBC Distribution Width 17.1 % (11.5-14.5); Red Blood Cell (RBC) Count 3.66 mill/uL (4.20-5.40)
[2024-02-25 05:33] LABS: Anion Gap 16 mmol/L (10-20); BUN (Urea Nitrogen) 7 mg/dL (9.8-20.1); Calc. Creatinine Clearance 71 mL/min (70-130); Calcium 7.9 mg/dL (7.8-10.44); Carbon Dioxide 21 mmol/L (23-31); Chloride 107 mmol/L (98-107); Estimated GFR 73; Glucose 112 mg/dL (83-110); Potassium 3.3 mmol/L (3.5-5.1); Sodium 141 mmol/L (136-145)
[2024-02-25] MEDS ORDERED: Levothyroxine Sodium 50 MCG TAB PO SCH (06:00)
[2024-02-25] MEDS: Potassium Chloride 20 MEQ TAB PO SCH ×2 (10:32→13:22)
[2024-02-25 10:51] LABS: #Basophils 0.04 10x3/uL (0.0-0.2); %Basophils 0.2 % (0.0-1.0); %Eosinophils 0.5 % (0.0-10.0); %Neutrophils 87.4 % (42.0-75.0)
[2024-02-25 11:22] LABS: Band 1 % (5-11); Burr Cells MODERATE= 6-15 cells HPF (0-1); Large Platelets 0.9 % (0-5); Lymphocytes 10 % (21-51); Monocytes 5 % (0-10); Neutrophil 84 % (42-75); Platelet Adequacy Comment Platelets Normal; Poikilocytosis SLIGHT = 6-15 cells HPF (0-5); Polychromasia SLIGHT = 2-3 cells HPF (0-2)
[2024-02-25] MEDS ORDERED: Ipratropium/Albuterol 3 ML NEB NEB PRN (12:01)
[2024-02-25] MEDS: Furosemide 40 MG (4 mL) VIAL SLOW IVP SCH (13:22)
[2024-02-25] MEDS: Acetaminophen/Codeine 30-300mg Tablet PO PRN (13:22)
[2024-02-25 13:28] LABS: ALT (SGPT) 6 U/L (8-55); AST (SGOT) 17 U/L (5-34); Albumin 2.6 g/dL (3.4-4.8); Alkaline Phosphatase 73 U/L (40-110); Bilirubin, Direct 0.4 mg/dL (0.1-0.3); Bilirubin, Total 0.8 mg/dL (0.2-1.2); Protein, Total 6.4 g/dL (5.8-8.1)
[2024-02-25] MEDS: Nystatin 500,000 UNITS/5 ML UDCUP SSW SCH (18:14)
[2024-02-26 05:32] LABS: #Basophils 0.04 10x3/uL (0.0-0.2); %Basophils 0.3 % (0.0-1.0); %Eosinophils 1.3 % (0.0-10.0); %Lymphocytes 12.2 % (21.0-51.0); %Monocytes 4.6 % (0.0-10.0); Hematocrit 28.6 % (36.0-47.0); Hemoglobin 9.4 g/dL (12.0-16.0); Mean Corpuscular HGB CONC 32.9 g/dL (32.0-36.0); Mean Corpuscular Hemoglobin 28.6 pg (27.0-31.0); Mean Corpuscular Volume 86.9 fL (78.0-98.0); Mean Platelet Volume 10.6 fL (7.4-10.4); Platelet Count 274 10x3/uL (130-400); RBC Distribution Width 17.1 % (11.5-14.5); Red Blood Cell (RBC) Count 3.29 mill/uL (4.20-5.40)
[2024-02-26 06:23] LABS: ALT (SGPT) 6 U/L (8-55); AST (SGOT) 15 U/L (5-34); Albumin 2.4 g/dL (3.4-4.8); Alkaline Phosphatase 71 U/L (40-110); Anion Gap 15 mmol/L (10-20); BUN (Urea Nitrogen) 10 mg/dL (9.8-20.1); Bilirubin, Total 0.8 mg/dL (0.2-1.2); Calc. Creatinine Clearance 72 mL/min (70-130); Calcium 8.4 mg/dL (7.8-10.44); Carbon Dioxide 24 mmol/L (23-31); Chloride 105 mmol/L (98-107); Estimated GFR 73; Globulin 3.6 g/dL (2.4-3.5); Glucose 98 mg/dL (83-110); Potassium 3.7 mmol/L (3.5-5.1); Sodium 140 mmol/L (136-145)
[2024-02-26] MEDS: Furosemide 40 MG (4 mL) VIAL SLOW IVP SCH (10:31)
[2024-02-26] MEDS: Albumin 25% 25 GM (100 mL) BOT IVPB SCH (12:10)
[2024-02-26] MEDS: HYDROcodone/Acetaminophen 10/325 mg Tablet PO PRN (22:33)
[2024-02-26 22:35] LABS: Bacteria/HPF None Seen HPF (None Seen); Bilirubin Negative (Negative); Blood, Urine Negative (Negative); Clarity Clear (Clear); Glucose, Urine (Dipstick) >=1000 mg/dL (Negative); Ketone, Urine Negative (Negative); Leukocyte Negative Leu/uL (Negative); Nitrite Negative (Negative); Protein, Urine (Dipstick) Negative (Neg-Trace); RBC/HPF 0-3 HPF (0-3); Squamous Epithelial None Seen HPF (0-3); Urobilinogen Normal mg/dL (Less than 2); WBC/HPF 0-3 HPF (0-3); pH, Urine 7.5 (5.0-9.0)
[2024-02-27 04:08] LABS: Hematocrit 29.2 % (36.0-47.0); Hemoglobin 9.5 g/dL (12.0-16.0); Mean Corpuscular HGB CONC 32.5 g/dL (32.0-36.0); Mean Corpuscular Hemoglobin 28.3 pg (27.0-31.0); Mean Corpuscular Volume 86.9 fL (78.0-98.0); Mean Platelet Volume 10.2 fL (7.4-10.4); Platelet Count 278 10x3/uL (130-400); Red Blood Cell (RBC) Count 3.36 mill/uL (4.20-5.40)
[2024-02-27 04:10] LABS: #Basophils 0.04 10x3/uL (0.0-0.2); %Basophils 0.4 % (0.0-1.0); %Lymphocytes 18.5 % (21.0-51.0); %Monocytes 4.7 % (0.0-10.0); Hematocrit 28.6 % (36.0-47.0); Hemoglobin 9.4 g/dL (12.0-16.0); Mean Corpuscular HGB CONC 32.9 g/dL (32.0-36.0); Mean Corpuscular Hemoglobin 28.6 pg (27.0-31.0); Mean Corpuscular Volume 86.9 fL (78.0-98.0); Mean Platelet Volume 10.2 fL (7.4-10.4); Platelet Count 270 10x3/uL (130-400); RBC Distribution Width 17.1 % (11.5-14.5); Red Blood Cell (RBC) Count 3.29 mill/uL (4.20-5.40)
[2024-02-27 04:27] LABS: Anion Gap 15 mmol/L (10-20); BUN (Urea Nitrogen) 9 mg/dL (9.8-20.1); Calc. Creatinine Clearance 68 mL/min (70-130); Calcium 8.8 mg/dL (7.8-10.44); Carbon Dioxide 27 mmol/L (23-31); Chloride 101 mmol/L (98-107); Estimated GFR 69; Glucose 96 mg/dL (83-110); Potassium 3.2 mmol/L (3.5-5.1); Sodium 140 mmol/L (136-145)
[2024-02-27] MEDS: Furosemide 40 MG TAB PO SCH (08:27)
[2024-02-27] MEDS: Potassium Chloride 20 MEQ TAB PO SCH (08:28)
[2024-02-27] MEDS: Furosemide 40 MG (4 mL) VIAL SLOW IVP SCH (10:05)
[2024-02-27] MEDS: Albumin 25% 25 GM (100 mL) BOT IVPB SCH (10:05)
[2024-02-27 11:44] VITALS: BP 150/78; TEMP 98.2
== END 2024-02-27 14:16 | disposition home or self-care (01) | DRG 469 ==
LOC: SDC 08:09 → SURG B 15:23 → SDC 18:08 → SURG B 18:08 → OBSVTOIN 02-24 10:11
PROVIDERS: ADMIT Orthopaedic Surgery; ATTEND Orthopaedic Surgery
PROC: 0SRD0J9 Replacement of Left Knee Joint with Synthetic Substitute, Cemented, Open Approach (ICD-10-PCS; principal; 2024-02-23)
PROC: 8E0Y0CZ Robotic Assisted Procedure of Lower Extremity, Open Approach (ICD-10-PCS; 2024-02-23)
PROC: 30233J1 Transfusion of Nonautologous Serum Albumin into Peripheral Vein, Percutaneous Approach (ICD-10-PCS; 2024-02-27)
DX: M17.12 Unilateral primary osteoarthritis, left knee (principal); E43 Unspecified severe protein-calorie malnutrition; I50.33 Acute on chronic diastolic (congestive) heart failure; J96.01 Acute respiratory failure with hypoxia; J69.0 Pneumonitis due to inhalation of food and vomit; I13.0 Hypertensive heart and chronic kidney disease with heart failure and stage 1 through stage 4 chronic kidney disease, or unspecified chronic kidney disease; G93.49 Other encephalopathy; J98.11 Atelectasis; I25.10 Atherosclerotic heart disease of native coronary artery without angina pectoris; E11.22 Type 2 diabetes mellitus with diabetic chronic kidney disease; E89.0 Postprocedural hypothyroidism; E78.5 Hyperlipidemia, unspecified; N18.30 Chronic kidney disease, stage 3 unspecified; D50.9 Iron deficiency anemia, unspecified; I35.0 Nonrheumatic aortic (valve) stenosis; K21.9 Gastro-esophageal reflux disease without esophagitis; K59.00 Constipation, unspecified; Z88.5 Allergy status to narcotic agent; Z88.8 Allergy status to other drugs, medicaments and biological substances; Z90.49 Acquired absence of other specified parts of digestive tract; Z98.891 History of uterine scar from previous surgery; Z91.09 Other allergy status, other than to drugs and biological substances; Z91.040 Latex allergy status; Z68.32 Body mass index [BMI] 32.0-32.9, adult; Z79.899 Other long term (current) drug therapy; Z79.84 Long term (current) use of oral hypoglycemic drugs; Z79.82 Long term (current) use of aspirin
CPT/HCPCS: 36415; 36416; 71045; 71275; 80048; 80053; 80076; 81001; 85027; 93970; 94640; 96372; 96374; 96375; 96376; 97139; A4306; C1713; C1776; C1889; G0378; J0665; J0696; J1100; J1885; J1940; J2250; J2405; J2550; J2704; J2795; J3010; J3370; J3370-JW; J3490; J7030; J7620; P9047; Q9967